=== PATIENT | female | born 1960 | race Caucasian/White ===

== ENCOUNTER 2017-07-14 15:41 | Emergency (ER) | payer OTHER ==
[~2017-07-14 15:41] MED LIST: CIPR-345 PO; HYDR-385 PO; IBUP800T37 PO; LOR5/325 PO; METR-1 PO; ONDA4TAB PO; OXYC-373 PO
[2017-07-14] MEDS ORDERED: SULF-198 PO (15:58)
[2017-07-14] MEDS ORDERED: METR-1 PO (15:58)
[2017-07-14] MEDS ORDERED: ONDA4TAB PO (15:59)
[2017-07-14] MEDS ORDERED: NS(*) 0.9% 1000 ML BAG 1,000 ML IV ONE (16:06)
[2017-07-14] MEDS ORDERED: ONDANSETRON 4 MG/2 ML VIAL IVP ONE (16:10)
[2017-07-14 16:15] LABS: PLATELET COUNT, AUTOMATED 353 K/uL (150-450)
[2017-07-14] MEDS ORDERED: IOPAMIDOL 76% 75 ML INFUS BTL 75 ML ONE (16:17)
[2017-07-14 16:20] LABS: INR 1.02
--- NOTE | 2017-07-14 16:25 | ER Report ---
History and Physical Time Seen By MD: 15:55 Hx. of Stated Complaint: patient has a history of diverticulitis. she saw her primary care provider yesterday and was given flagyl and bactrim. she is nauseated today and is also reporting abdominal pain. HPI/ROS CHIEF COMPLAINT: Left lower quadrant pain HISTORY OF PRESENT ILLNESS: Patient with a long history of diverticulitis comes back to the emergency department today with a complaint of left lower quadrant pain states that she was told by she is diverticulitis put on Bactrim and Flagyl having worsening pain thinks maybe allergic reaction to her medications since she's been nauseated put on Zofran and this is had little to no benefit no actual emesis this point. Pain is localized left lower quadrant she is convinced that this is diverticulitis and diverticulosis without imaging. The patient's that she had a fever of 98.4 patient has no additional complaints at this time REVIEW OF SYSTEMS: Respiratory: No cough, no dyspnea. Cardiovascular: No chest pain, no palpitations. Gastrointestinal: Nausea, vomiting left lower quadrant abdominal pain Musculoskeletal: No back pain. Remainder of the 14 system rev: Yes Allergies: Coded Allergies: No Known Drug Allergies (Unverified , 01/25/15) Home Meds Reported Medications Ondansetron (ZOFRAN ODT) 4 Mg Tab.rapdis, 4 MG PO Q12H, TAB.SHEBA 07/14/17 Metronidazole (FLAGYL) 500 Mg Tablet, 500 MG PO TID, TAB 07/14/17 Sulfamethoxazole/Trimet 800-160 Mg Tab (BACTRIM DS TABLET) 1 Each Tablet, 1 TAB PO Q12H, TAB 07/14/17 Discontinued Scripts Oxycodone Hcl/Acetaminophen (OXYCODONE-ACETAMINOPHEN 5-325) 1 Each Tablet, 1-2 EACH PO Q4H Y for PAIN, #30 TAB TAKE 1-2 TABLET NEEDED FOR PAIN - NO CLOSER THAN EVERY 4 HOURS. Prov:OLEG PINTO MD 02/26/16 Ibuprofen (IBUPROFEN) 800 Mg Tablet, 1 TAB PO Q8H, #30 TAB Take with food every 8 hours. Prov:OLEG PINTO MD 02/26/16 Reviewed Nurses Notes: Yes Old Medical Records Reviewed: Yes Hx Smoking: Yes (SMOKED FOR FEW YEARS TEEN, NONE SINCE 19YO) Smoking Status: Former Smoker Hx Substance Use Disorder: No Hx Alcohol Use: Yes Constitutional Vital Sign - Last 24 Hours 07/14/17 15:47 Temp 98.8 Pulse 113 Resp 24 B/P (MAP) 146/86 Pulse Ox 93 O2 Delivery Room Air Physical Exam General Appearance: The patient is alert, has no immediate need for airway protection and no current signs of toxicity. [ ] Eyes: Pupils equal and round no injection. Respiratory: Chest is non tender, lungs are clear to auscultation. Cardiac: regular rate and rhythm [ ] Gastrointestinal: Abdominal examination shows significant point tenderness to the left lower quadrant no rebound mild guarding no pain left lower and left upper eyelid right lower right upper. Normal bowel sounds Musculoskeletal: Neck: Neck is supple and non tender. Extremities have full range of motion and are non tender. Skin: No rashes or lesions. [ ] DIFFERENTIAL DIAGNOSIS: After history and physical exam differential diagnosis was considered for reticulosis versus diverticulitis Medical Decision Making Data Points Result Diagram: 07/14/17 1555 07/14/17 1555 Laboratory Hematology Test 07/14/17 15:46 07/14/17 15:55 Urine Color Linda Urine Clarity Slightly-cloudy Urine pH 5.0 pH (4.8-9.5) Urine Specific [place] 1.025 Urine Protein 30 mg/dL (NEGATIVE) Urine Glucose (UA) Negative mg/dL (NEGATIVE) Urine Ketones 80 mg/dL (NEGATIVE) Urine Blood Negative (NEGATIVE) Urine Nitrite Negative (NEGATIVE) Urine Bilirubin Negative (NEGATIVE) Urine Urobilinogen 2.0 mg/dL (0.2-1.9) Urine Leukocyte Esterase Small (NEGATIVE) Urine RBC <1 /HPF (0-2/HPF) Urine WBC 1 /HPF (0-5/HPF) Urine Squamous Epithelial Cells Many /LPF (</=FEW) Urine Bacteria Negative /HPF (NONE-FEW) Urine Mucus Few /HPF (NONE-FEW) Red Blood Count 5.24 M/uL (4.17-5.56) Mean Corpuscular Volume 88.0 fL (80.0-96.0) Mean Corpuscular Hemoglobin 30.0 pg (26.0-33.0) Mean Corpuscular Hemoglobin Concent 34.1 g/dL (32.0-36.0) Red Cell Distribution Width 13.1 % (11.5-14.5) Mean Platelet Volume 7.8 fL (7.2-11.1) Neutrophils (%) (Auto) 71.0 % (39.4-72.5) Lymphocytes (%) (Auto) 19.1 % (17.6-49.6) Monocytes (%) (Auto) 7.1 % (4.1-12.4) Eosinophils (%) (Auto) 1.4 % (0.4-6.7) Basophils (%) (Auto) 1.4 % (0.3-1.4) Nucleated RBC Relative Count (auto) 0.0 /100WBC Neutrophils # (Auto) 5.8 K/uL (2.0-7.4) Lymphocytes # (Auto) 1.6 K/uL (1.3-3.6) Monocytes # (Auto) 0.6 K/uL (0.3-1.0) Eosinophils # (Auto) 0.1 K/uL (0.0-0.5) Basophils # (Auto) 0.1 K/uL (0.0-0.1) Nucleated RBC Absolute Count (auto) 0.00 K/uL Prothrombin Time 13.4 seconds (12.0-14.4) Prothromb Time International Ratio 1.02 Activated Partial Thromboplast Time 27 seconds (23-35) Sodium Level 139 mmol/L (137-145) Potassium Level 3.9 mmol/L (3.5-5.0) Chloride Level 99 mmol/L (98-107) Carbon Dioxide Level 24 mmol/L (22-31) Blood Urea Nitrogen 9 mg/dl (7-18) Creatinine 0.70 mg/dl (0.52-1.04) Glomerular Filtration Rate Calc > 60.0 Random Glucose 109 mg/dl (75-110) Calcium Level 9.8 mg/dl (8.4-10.2) Total Bilirubin 0.7 mg/dl (0.2-1.3) Aspartate Amino Transf (AST/SGOT) 193 U/L (0-35) Alanine Aminotransferase (ALT/SGPT) 259 U/L (0-56) Alkaline Phosphatase 185 U/L (0-126) Total Protein 8.5 gm/dl (6.3-8.2) Albumin 4.9 g/dl (3.5-5.0) Lipase 94 U/L (23-300) Serum Alcohol < 10 mg/dl Chemistry Test 07/14/17 15:46 07/14/17 15:55 Urine Color Linda Urine Clarity Slightly-cloudy Urine pH 5.0 pH (4.8-9.5) Urine Specific [place] 1.025 Urine Protein 30 mg/dL (NEGATIVE) Urine Glucose (UA) Negative mg/dL (NEGATIVE) Urine Ketones 80 mg/dL (NEGATIVE) Urine Blood Negative (NEGATIVE) Urine Nitrite Negative (NEGATIVE) Urine Bilirubin Negative (NEGATIVE) Urine Urobilinogen 2.0 mg/dL (0.2-1.9) Urine Leukocyte Esterase Small (NEGATIVE) Urine RBC <1 /HPF (0-2/HPF) Urine WBC 1 /HPF (0-5/HPF) Urine Squamous Epithelial Cells Many /LPF (</=FEW) Urine Bacteria Negative /HPF (NONE-FEW) Urine Mucus Few /HPF (NONE-FEW) White Blood Count 8.2 k/uL (4.5-11.0) Red Blood Count 5.24 M/uL (4.17-5.56) Hemoglobin 15.7 g/dL (12.0-16.0) Hematocrit 46.1 % (34.0-47.0) Mean Corpuscular Volume 88.0 fL (80.0-96.0) Mean Corpuscular Hemoglobin 30.0 pg (26.0-33.0) Mean Corpuscular Hemoglobin Concent 34.1 g/dL (32.0-36.0) Red Cell Distribution Width 13.1 % (11.5-14.5) Platelet Count 353 K/uL (150-450) Mean Platelet Volume 7.8 fL (7.2-11.1) Neutrophils (%) (Auto) 71.0 % (39.4-72.5) Lymphocytes (%) (Auto) 19.1 % (17.6-49.6) Monocytes (%) (Auto) 7.1 % (4.1-12.4) Eosinophils (%) (Auto) 1.4 % (0.4-6.7) Basophils (%) (Auto) 1.4 % (0.3-1.4) Nucleated RBC Relative Count (auto) 0.0 /100WBC Neutrophils # (Auto) 5.8 K/uL (2.0-7.4) Lymphocytes # (Auto) 1.6 K/uL (1.3-3.6) Monocytes # (Auto) 0.6 K/uL (0.3-1.0) Eosinophils # (Auto) 0.1 K/uL (0.0-0.5) Basophils # (Auto) 0.1 K/uL (0.0-0.1) Nucleated RBC Absolute Count (auto) 0.00 K/uL Prothrombin Time 13.4 seconds (12.0-14.4) Prothromb Time International Ratio 1.02 Activated Partial Thromboplast Time 27 seconds (23-35) Glomerular Filtration Rate Calc > 60.0 Calcium Level 9.8 mg/dl (8.4-10.2) Total Bilirubin 0.7 mg/dl (0.2-1.3) Aspartate Amino Transf (AST/SGOT) 193 U/L (0-35) Alanine Aminotransferase (ALT/SGPT) 259 U/L (0-56) Alkaline Phosphatase 185 U/L (0-126) Total Protein 8.5 gm/dl (6.3-8.2) Albumin 4.9 g/dl (3.5-5.0) Lipase 94 U/L (23-300) Serum Alcohol < 10 mg/dl Coagulation Test 07/14/17 15:55 Prothrombin Time 13.4 seconds Prothromb Time International Ratio 1.02 Activated Partial Thromboplast Time 27 seconds Toxicology Test 07/14/17 15:55 Serum Alcohol < 10 mg/dl Urinalysis Test 07/14/17 15:46 Urine Color Linda Urine Clarity Slightly-cloudy Urine pH 5.0 pH (4.8-9.5) Urine Specific [place] 1.025 Urine Protein 30 mg/dL (NEGATIVE) Urine Glucose (UA) Negative mg/dL (NEGATIVE) Urine Ketones 80 mg/dL (NEGATIVE) Urine Blood Negative (NEGATIVE) Urine Nitrite Negative (NEGATIVE) Urine Bilirubin Negative (NEGATIVE) Urine Urobilinogen 2.0 mg/dL (0.2-1.9) Urine Leukocyte Esterase Small (NEGATIVE) Urine RBC <1 /HPF (0-2/HPF) Urine WBC 1 /HPF (0-5/HPF) Urine Squamous Epithelial Cells Many /LPF (</=FEW) Urine Bacteria Negative /HPF (NONE-FEW) Urine Mucus Few /HPF (NONE-FEW) ED Course/Re-evaluation ED Course ED clinical course medical decision making patient is atrophic with left lower quadrant pain CT scan does show diverticulosis with some mild sigmoid diverticulitis no discrete abscess fluid collections no other intra-abdominal findings she was on Cipro and Bactrim and Zofran for nausea she is also demonstrating elevated liver function testing consistent with acute either hepatotoxic medications undiagnosed liver infection CT scan showed no sign of abscess formation I advised to discontinue the medications point referred to general surgery for GI follow-up recommending flex sigmoidoscopy and evaluation of the liver dysfunction Decision to Disposition Date: Jul 14, 2017 Decision to Disposition Time: 17:49 Depart Departure Latest Vital Signs Vital Signs Date Time Temp Pulse Resp B/P (MAP) Pulse Ox O2 Delivery O2 Flow Rate FiO2 07/14/17 15:47 98.8 113 24 146/86 93 Room Air Impression: Primary Impression: Liver dysfunction Condition: Improved Disposition: HOME OR SELF-CARE Referrals: PARESH RUTLEDGE MD 2 Days Patient Instructions: Liver Profile (GEN) DAREN LIPSCOMB MD Jul 14, 2017 16:25
--- NOTE | 2017-07-14 17:05 | RADIOLOGY IMAGING REPORT ---
FACILITY: [facility] PATIENT NAME: Jumana Dukes : 1960 MR: [id number] V: [id number] EXAM DATE: ORDERING PHYSICIAN: DAREN LIPSCOMB TECHNOLOGIST: Location: [facility] - [place] Patient: Jumana Dukes : 1960 Visit/Account:[id number] Date of Sevice: 07/14/2017 Exam type: CHEST PA AND LAT History: pain Comparison: None. Findings: Lungs are hyperinflated but otherwise clear. There is no focal consolidation, pleural effusion or pne umothorax. Biapical pleural scarring is noted. Heart is enlarged. The osseous structures demonstrate osteopenia. IMPRESSION: 1. No evidence for acute cardiopulmonary disease. 2. Pulmonary hyperinflation. Report Dictated By: Jayson Oconnell MD at 07/14/2017 4:59 PM Report E-Signed By: Jayson Oconnell MD at 07/14/2017 5:00 PM WSN:[id number]
[2017-07-14 17:30] VITALS: BP 127/81
--- NOTE | 2017-07-14 17:31 | RADIOLOGY IMAGING REPORT ---
[place] [facility] [place] Jumana Dukes : 1960 MR: [id number] V: [id number] EXAM DATE: ORDERING PHYSICIAN: DAREN LIPSCOMB TECHNOLOGIST: Location: [facility] - [place] Patient: Jumana Dukes : 1960 Visit/Account:[id number] Date of Sevice: 07/14/2017 EXAMINATION: CT abdomen and pelvis with IV contrast HISTORY: Left lower quadrant pain. TECHNIQUE: Axial CT images of the abdomen and pelvis were obtained with IV contrast, with coronal a nd sagittal 2D reconstructed images. One of the following dose optimization techniques was utilized in the performance of this exam: Autom ated exposure control; adjustment of the mA and/or kV according to the patient's size; or use of an i terative reconstruction technique. Specific details can be referenced in the facility's radiology C T exam operational policy. Contrast: 50 mL of IV Isovue-370. COMPARISON: CT abdomen/pelvis 01/23/2015. FINDINGS: Liver: Negative. Gallbladder and bile ducts: Cholecystectomy. Stable dilatation of the central bile ducts may relate to the postcholecystectomy state. The common bile duct measures 1.0 cm. Spleen: Negative. Pancreas: The pancreas enhances normally. No acute peripancreatic stranding. There is mild dilatatio n of the main pancreatic duct, measuring up to 4 mm. Adrenal glands: Negative. Kidneys: Negative. No hydronephrosis or urinary calculi. Bowel and peritoneum: The small bowel and colon are normal in caliber. No bowel obstruction. Extensi ve colonic diverticulosis along the descending and sigmoid colon. There is segmental wall thickening and pericolonic stranding along the mid sigmoid colon in the left pelvis, suspicious for diverticulit is. No discrete pericolonic abscess or fluid collection. No free fluid or free intraperitoneal air. Pelvic structures: Negative. Lymph node assessment: Negative. Vessels: Negative. Musculoskeletal: Negative. Body wall: Negative. Lung bases: Negative. IMPRESSION: 1. Changes of uncomplicated diverticulitis along the mid sigmoid colon in the left pelvis. There is l ocalized pericolonic stranding but no discrete abscess or fluid collection. 2. No other acute intra-abdominal findings. 3. Cholecystectomy. Stable bile duct dilatation may relate to the postcholecystectomy state. Report Dictated By: Trevin Omalley MD at 07/14/2017 5:19 PM Report E-Signed By: Trevin Omalley MD at 07/14/2017 5:26 PM WSN:[id number]
== END 2017-07-14 17:49 | disposition home or self-care (01) ==
LOC: ER 15:51
DX: K57.32 Diverticulitis of large intestine without perforation or abscess without bleeding (principal); K76.89 Other specified diseases of liver
CPT/HCPCS: 71046; 74177; 80320; 81001; 83690; 85025; 85610; 85730; J2405; J7030; Q9967; 82040; 82247; 82310; 82374; 82435; 82565; 82947; 84075; 84132; 84155; 84295; 84450; 84460; 84520; 99283

== ENCOUNTER → 2017-08-03 | Outpatient (CLI) | payer OTHER ==
[~2017-08-03] MED LIST changes: +SULF-198 PO
--- NOTE | 2017-08-03 14:29 | RADIOLOGY IMAGING REPORT ---
FACILITY: [facility] - [place] PATIENT NAME: Jumana Dukes : 1960 MR: [id number] V: [id number] EXAM DATE: ORDERING PHYSICIAN: ABHIJEET SEQUEIRA TECHNOLOGIST: Location: [facility] - [place] Patient: Jumana Dukes : 1960 Visit/Account:[id number] Date of Sevice: 08/03/2017 Exam type: ACUTE ABDOMEN SERIES 3 VIEW History: Abdomen pain Comparison: CT abdomen and pelvis July 14, 2017. Findings: Supine and upright views the abdomen reveal a nonspecific bowel gas pattern. There is no evidence of free air beneath hemidiaphragms. Surgical clips are present right upper quadrant of abdomen. No ev idence of organomegaly. PA view the chest reveals no evidence of pulmonary consolidation or pleural effusions. Cardiac silhouette is normal. IMPRESSION: 1. Nonspecific bowel gas pattern No evidence of pulmonary consolidation Report Dictated By: Lauren Daugherty MD at 08/03/2017 2:12 PM Report E-Signed By: Lauren Daugherty MD at 08/03/2017 2:24 PM WSN:[email or web address]
== END ==
LOC: RAD 11:56
PROVIDERS: ATTEND Family Medicine
DX: R10.817 Generalized abdominal tenderness (principal)
CPT/HCPCS: 74022

== ENCOUNTER → 2017-09-29 | Outpatient (CLI) | payer OTHER ==
--- NOTE | 2017-09-29 10:21 | RADIOLOGY IMAGING REPORT ---
FACILITY: [facility] PATIENT NAME: Jumana Dukes : 1960 MR: [id number] V: [id number] EXAM DATE: ORDERING PHYSICIAN: ABHIJEET SEQUEIRA TECHNOLOGIST: Location: [facility] - [place] Patient: Jumana Dukes : 1960 Visit/Account:[id number] Date of Sevice: 09/29/2017 SHOULDER MIN 2 VIEWS LEFT HISTORY: Patient reports bursitis and decreasing range of motion over the past year. Additional history: None COMPARISON: None. FINDINGS: Three views left shoulder. Osseous structures left shoulder are normal in appearance. There is no e vidence of arthritic changes in the left glenohumeral joint. Joint spaces well-maintained AC joint a ppears normal. However, there is downsloping of the acromion process which can predispose to rotator cuff impingement. IMPRESSION: Downsloping acromion process which can predispose to rotator cuff impingement. Examination otherwise unremarkable without arthritic changes. Report Dictated By: Kuldip Orozco MD at 09/29/2017 10:15 AM Report E-Signed By: Kuldip Orozco MD at 09/29/2017 10:17 AM WSN:[id number]
== END ==
LOC: RAD 09:26
PROVIDERS: ATTEND Family Medicine
DX: M25.512 Pain in left shoulder (principal)

== ENCOUNTER → 2018-11-20 | Outpatient (CLI) | payer OTHER ==
--- NOTE | 2018-11-20 10:20 | RADIOLOGY IMAGING REPORT ---
[place] [facility] [place] Jumana Dukes : 1960 MR: [id number] V: [id number] EXAM DATE: ORDERING PHYSICIAN: JOEL FIGUEROA TECHNOLOGIST: Location: [facility] Patient: Jumana Dukes : 1960 Visit/Account:[id number] Date of Sevice: 11/20/2018 EXAMINATION: CT Head Without Contrast 11/20/2018 9:43 AM HISTORY: Left frontal head injury 2 days ago. Now with dizziness, nausea, and vomiting with left eye issues. TECHNIQUE: Contiguous axial images were obtained from the skull base to the vertex without intraven ous contrast. One of the following dose optimization techniques was utilized in the performance of this exam: Autom ated exposure control; adjustment of the mA and/or kV according to the patient's size; or use of an i terative reconstruction technique. Specific details can be referenced in the facility's radiology C T exam operational policy. COMPARISON STUDIES: none. FINDINGS: Ventricles / sulci / fissures: negative Masses / hemorrhage / midline shift: negative White matter: negative Avila-white differentiation: negative Extra-axial spaces: negative Dural venous sinuses / arterial structures: negative Skull base / calvarium: negative Visualized mastoid air cells / paranasal sinuses: negative IMPRESSION: Unremarkable head CT. No evidence of acute injury or any mass, stroke, or hemorrhage. I am having the [facility]'s call negative results to JOEL FIGUEROA for me at 11/20/2018 10:13 AM. Report Dictated By: Xiang Wick MD at 11/20/2018 10:07 AM Report E-Signed By: Xiang Wick MD at 11/20/2018 10:13 AM WSN:[id number]
== END ==
LOC: CT 09:36
PROVIDERS: ATTEND Physician Assistant
DX: R51 Headache (principal); R42 Dizziness and giddiness; R11.2 Nausea with vomiting, unspecified; S01.80XS Unspecified open wound of other part of head, sequela
CPT/HCPCS: 70450